=== PATIENT | female | born 1985 | race Two or more races ===

== ENCOUNTER 2019-07-14 14:06 | Emergency (ER) | payer OTHER ==
[~2019-07-14] VITALS: Ht 149.9 cm; Wt 63.5 kg
[2019-07-14] MEDS ORDERED: SYSTANE 0.3-0.1 EACH (14:21)
== END 2019-07-14 17:22 | disposition home or self-care (01) ==
LOC: ER 14:06
DX: T78.49XA Other allergy, initial encounter (principal); R21 Rash and other nonspecific skin eruption

== ENCOUNTER → 2020-09-24 | Outpatient (CLI) | payer OTHER ==
[~2020-09-24] MED LIST: SYSTANE 0.3-0.1 EACH
== END | disposition home or self-care (01) ==
LOC: PRENATAL 08:00
PROVIDERS: ATTEND Obstetrics & Gynecology Maternal & Fetal Medicine
DX: O35.0XX1 Maternal care for (suspected) central nervous system malformation in fetus, fetus 1 (principal); O35.3XX1 Maternal care for (suspected) damage to fetus from viral disease in mother, fetus 1; O98.512 Other viral diseases complicating pregnancy, second trimester; O09.512 Supervision of elderly primigravida, second trimester; Z36.89 Encounter for other specified antenatal screening; Z3A.21 21 weeks gestation of pregnancy

== ENCOUNTER 2022-09-30 22:31 | Emergency (ER) | payer OTHER ==
[~2022-09-30] VITALS: Ht 149.9 cm; Wt 70.8 kg
[2022-09-30] MEDS ORDERED: PRENATA CHEWAB1 EACH PO (22:54)
== END 2022-10-01 04:37 | disposition home or self-care (01) ==
LOC: ER 22:31 → EMR PED 22:37 → ER 22:37 → EMR PED 10-01 04:37
DX: O99.612 Diseases of the digestive system complicating pregnancy, second trimester (principal); R19.7 Diarrhea, unspecified; Z3A.23 23 weeks gestation of pregnancy

== ENCOUNTER 2022-10-01 15:40 | Emergency (ER) | payer OTHER ==
[~2022-10-01] VITALS: Ht 149.9 cm; Wt 71.2 kg
[~2022-10-01 15:40] MED LIST changes: +PRENATA CHEWAB1 EACH PO
== END 2022-10-01 18:00 | disposition home or self-care (01) ==
LOC: ER 15:40 → EMR PED 15:54 → ER 15:54
DX: J06.9 Acute upper respiratory infection, unspecified (principal)

== ENCOUNTER 2023-10-27 02:07 | Emergency (ER) | payer OTHER ==
[~2023-10-27] VITALS: Ht 149.9 cm; Wt 68.0 kg
[2023-10-27] MEDS ORDERED: HYDROCODONE/CHLORPHEN P-STIREX 5 ML ML PO STA (04:36)
[2023-10-27] MEDS ORDERED: CEFTRIAXONE SODIUM 2,000 MG VIAL IM STA (04:47)
== END 2023-10-27 05:13 | disposition home or self-care (01) ==
LOC: ER 02:07
DX: J06.9 Acute upper respiratory infection, unspecified (principal)

== ENCOUNTER 2024-07-23 20:05 | Emergency (ER) | payer OTHER ==
[~2024-07-23] VITALS: Ht 149.9 cm; Wt 68.0 kg
== END 2024-07-23 22:13 | disposition home or self-care (01) ==
LOC: ER 20:05
DX: R53.81 Other malaise (principal); J06.9 Acute upper respiratory infection, unspecified; Z20.822 Contact with and (suspected) exposure to COVID-19